=== PATIENT | male | born 1980 | race African-American/Black ===

== ENCOUNTER 2016-07-15 08:25 | Emergency (ER) | payer MEDICAID, OTHER ==
[~2016-07-15] VITALS: Ht 180.3 cm; Wt 80.0 kg
[2016-07-15] MEDS ORDERED: SODIUM CHLORIDE 0.9% 1,000 ML IV ONE (09:07)
[2016-07-15 09:32] LABS: BASOPHILS % 1.2 % (0.0-2.0); EOSINOPHILS % 3.5 % (0.0-5.0); HEMATOCRIT. 50.4 % (42.0-52.0); LYMPHOCYTES % 29.2 % (20.0-50.0); MEAN CORPUSCULAR VOLUME 90.3 fL (80.0-94.0); MEAN PLATELET VOLUME 7.9 fl (7.4-10.4); MONOCYTES % 5.6 % (2.0-8.0); NEUTROPHILS % 60.5 % (40.0-76.0); PLATELET 259 x1000/uL (130-400); RED BLOOD CELL COUNT 5.58 mill/uL (4.7-6.1); RED CELL DISTRIBUTION WIDTH 13.3 % (11.6-14.6); WHITE BLOOD COUNT 9.2 x1000/uL (4.5-11.0)
[2016-07-15 09:53] LABS: CHLORIDE 104 mEq/L (98-107); INDEX HEMOLYSI 4 (1-3); INDEX ICTERIC 1 (1-4); INDEX LIPEMIC 1 (1-3)
[2016-07-15 10:02] LABS: ALANINE AMINOTRANSFERASE 69 IU/L (13-61); ALBUMIN 3.9 g/dL (3.4-5.0); ANION GAP 16; BETA HYDROXYBUTYRATE 0.3 mMol/L (0.0-0.3); CARBON DIOXIDE 22 mEq/L (21-32); UREA NITROGEN BLOOD 17 mg/dL (7-21); eGFR > 60 mL/min (>60)
[2016-07-15 10:06] LABS: DIFFERENTIAL COMMENT 1
[2016-07-15 10:07] LABS: HEMOGLOBIN. 18.7 g/dL (14.0-18.0); MEAN CORPUSCULAR HEMOGLOBIN 33.5 pg (28.0-32.0); MEAN CORPUSCULAR HGB CONC 37.1 g/dL (31.0-37.0)
[2016-07-15] MEDS ORDERED: INSULIN REGULAR (HUMULIN R) 300UNITS/3ML SUBCUT ONE (10:30)
[2016-07-15 14:25] LABS: CLARITY URINE CLEAR (CLEAR); COLOR URINE YELLOW (YELLOW); GLUCOSE URINE 3+ (NEGATIVE); KETONES URINE NEGATIVE (NEGATIVE); LEUKOCYTE ESTERASE URINE NEGATIVE (NEGATIVE); NITRITE URINE NEGATIVE (NEGATIVE); OCCULT BLOOD URINE NEGATIVE (NEGATIVE); PROTEIN URINE NEGATIVE (NEGATIVE); SPECIFIC GRAVITY URINE 1.041 (1.005-1.030); UROBILINOGEN URINE 0.2 E.U./dL (0.2-1.0)
[2016-07-15 14:48] LABS: RBC URINE 0-2 /hpf (0-2); WBC URINE NONE SEEN /hpf (0-2)
[2016-07-15 14:49] LABS: BACTERIA URINE NONE SEEN; SQUAMOUS EPITHELIAL CELL URINE RARE /lpf (RARE/1+)
[2016-07-15 15:37] VITALS: BP 144/92
== END 2016-07-15 16:51 | disposition home or self-care (01) ==
LOC: ER 08:57
DX: E11.65 Type 2 diabetes mellitus with hyperglycemia (principal); I10 Essential (primary) hypertension; F20.9 Schizophrenia, unspecified; F31.9 Bipolar disorder, unspecified; F12.10 Cannabis abuse, uncomplicated; Z79.4 Long term (current) use of insulin
CPT/HCPCS: 36415; 71010; 80053; 81001; 82010; 82962; 85025; 96361; 96374; 99285; J1815; J7030; Z7610

== ENCOUNTER 2016-07-29 20:59 | Emergency (ER) | payer MEDICAID ==
[~2016-07-29] VITALS: Ht 182.9 cm; Wt 113.0 kg
[2016-07-29] MEDS ORDERED: SODIUM CHLORIDE 0.9% 1,000 ML IV ONE (22:16)
[2016-07-29] MEDS ORDERED: CLONIDINE 0.1MG TABLET PO ONE (22:30)
[2016-07-29 22:43] LABS: BASOPHILS % 1.2 % (0.0-2.0); DIFFERENTIAL COMMENT 0; HEMATOCRIT. 46.8 % (42.0-52.0); HEMOGLOBIN. 16.8 g/dL (14.0-18.0); LYMPHOCYTES % 27.2 % (20.0-50.0); MEAN CORPUSCULAR HEMOGLOBIN 32.3 pg (28.0-32.0); MEAN CORPUSCULAR VOLUME 89.8 fL (80.0-94.0); MEAN PLATELET VOLUME 8.4 fl (7.4-10.4); MONOCYTES % 6.2 % (2.0-8.0); NEUTROPHILS % 60.4 % (40.0-76.0); PLATELET 227 x1000/uL (130-400); RED BLOOD CELL COUNT 5.21 mill/uL (4.7-6.1); RED CELL DISTRIBUTION WIDTH 13.7 % (11.6-14.6); WHITE BLOOD COUNT 9.4 x1000/uL (4.5-11.0)
[2016-07-29 22:45] LABS: CHLORIDE 102 mEq/L (98-107); INDEX HEMOLYSI 4 (1-3); INDEX ICTERIC 2 (1-4); INDEX LIPEMIC 4 (1-3)
[2016-07-29 22:47] LABS: ALBUMIN 3.4 g/dL (3.4-5.0); AMYLASE 49 IU/L (25-115); ANION GAP 13; CARBON DIOXIDE 24 mEq/L (21-32); LIPASE 455 IU/L (73-393)
[2016-07-29 22:54] LABS: BETA HYDROXYBUTYRATE 0.2 mMol/L (0.0-0.3); eGFR > 60 mL/min (>60)
[2016-07-29] MEDS ORDERED: INSULIN REGULAR (HUMULIN R) 300UNITS/3ML SUBCUT ONE (23:15)
[2016-07-29 23:16] LABS: ALANINE AMINOTRANSFERASE 65 IU/L (13-61); UREA NITROGEN BLOOD 15 mg/dL (7-21)
[2016-07-29 23:38] VITALS: BP 159/100
[2016-07-29 23:57] LABS: CLARITY URINE CLEAR (CLEAR); COLOR URINE YELLOW (YELLOW); GLUCOSE URINE 3+ (NEGATIVE); KETONES URINE NEGATIVE (NEGATIVE); LEUKOCYTE ESTERASE URINE NEGATIVE (NEGATIVE); NITRITE URINE NEGATIVE (NEGATIVE); OCCULT BLOOD URINE NEGATIVE (NEGATIVE); PH URINE 6.5 (4.5-8.0); PROTEIN URINE NEGATIVE (NEGATIVE); SPECIFIC GRAVITY URINE 1.039 (1.005-1.030)
[2016-07-30 00:15] LABS: BACTERIA URINE NONE SEEN; RBC URINE 0-2 /hpf (0-2); SQUAMOUS EPITHELIAL CELL URINE NONE SEEN /lpf (RARE/1+); WBC URINE 0-2 /hpf (0-2)
== END 2016-07-30 00:07 | disposition home or self-care (01) ==
LOC: ER 22:17
DX: E11.65 Type 2 diabetes mellitus with hyperglycemia (principal); Z91.14 Patient's other noncompliance with medication regimen; I10 Essential (primary) hypertension; F20.9 Schizophrenia, unspecified
CPT/HCPCS: 36415; 80053; 81001; 82010; 82150; 82962; 83690; 85025; 96360; 96372; 99284; J1815; J7030; Z7610

== ENCOUNTER 2016-08-04 07:44 | Emergency (ER) | payer MEDICAID ==
[~2016-08-04] VITALS: Ht 182.9 cm; Wt 114.0 kg
[2016-08-04] MEDS ORDERED: INSULIN NPH (07:58)
[2016-08-04] MEDS ORDERED: SODIUM CHLORIDE 0.9% 1,000 ML IV ONE (08:19)
[2016-08-04 08:41] LABS: BG BASE EXCESS 0.8 mmol/L (-2.0-2.0); BG CARBOXYHEMOGLOBIN 3.8 % (0.5-1.5); BG FRACTION INSPIRED OXYGEN 21; BG HCO3 ACT 25.7 mmol/L (22.0-26.0); BG OXYGEN SATURATION 94.8 % (92.0-98.5); BG OXYHEMOGLOBIN 91.2 % (94.0-97.0); BG PCO2 41.7 mmHg (35.0-45.0); BG PH 7.407 (7.350-7.450); BG PO2 73.5 mmHg (75.0-100.0); BG SAMPLE SITE RIGHT BRACHIAL; BG TOTAL HEMOGLOBIN 16.7 g/dL (12.0-18.0); BG VENT MODE ROOM AIR
[2016-08-04 08:49] LABS: BASOPHILS % 1.4 % (0.0-2.0); EOSINOPHILS % 5.4 % (0.0-5.0); HEMATOCRIT. 47.5 % (42.0-52.0); HEMOGLOBIN. 16.4 g/dL (14.0-18.0); LYMPHOCYTES % 27.1 % (20.0-50.0); MEAN PLATELET VOLUME 8.3 fl (7.4-10.4); MONOCYTES % 6.6 % (2.0-8.0); NEUTROPHILS % 59.5 % (40.0-76.0); PLATELET 212 x1000/uL (130-400); RED BLOOD CELL COUNT 5.28 mill/uL (4.7-6.1); RED CELL DISTRIBUTION WIDTH 13.6 % (11.6-14.6)
[2016-08-04 09:11] LABS: CHLORIDE 99 mEq/L (98-107)
[2016-08-04 09:21] LABS: BETA HYDROXYBUTYRATE 0.2 mMol/L (0.0-0.3); CARBON DIOXIDE 27 mEq/L (21-32)
[2016-08-04] MEDS ORDERED: INSULIN REGULAR (HUMULIN R) 300UNITS/3ML IV ONE (09:30)
[2016-08-04 10:53] VITALS: BP 144/88
== END 2016-08-04 11:09 | disposition home or self-care (01) ==
LOC: ER 08:06
DX: E11.65 Type 2 diabetes mellitus with hyperglycemia (principal); F31.9 Bipolar disorder, unspecified; F20.9 Schizophrenia, unspecified; F17.200 Nicotine dependence, unspecified, uncomplicated
CPT/HCPCS: 36415; 36600; 80053; 82010; 82375; 82805; 82962; 85025; 96361; 96374; 99285; 99406; J1815; J7030; Z7610

== ENCOUNTER 2016-08-19 00:07 | Emergency (ER) | payer MEDICAID ==
[~2016-08-19 00:07] MED LIST: INSULIN NPH
== END 2016-08-19 03:35 | disposition left against medical advice (07) ==
LOC: ER 02:42
DX: Z53.21 Procedure and treatment not carried out due to patient leaving prior to being seen by health care provider (principal)

== ENCOUNTER 2016-11-15 19:44 | Emergency (ER) | payer MEDICAID ==
[~2016-11-15] VITALS: Ht 182.9 cm; Wt 106.0 kg
[2016-11-15] MEDS ORDERED: MORPHINE SULFATE 4 MG/ML CPJ (NOT FOR IM USE) IV STA (22:28)
[2016-11-15] MEDS ORDERED: SODIUM CHLORIDE 0.9% 1,000 ML IV ONE (22:28)
[2016-11-15] MEDS ORDERED: ONDANSETRON HCL 4MG/2ML VIAL IV STA (22:28)
[2016-11-15 23:02] LABS: BASOPHILS % 0.5 % (0.0-2.0); EOSINOPHILS % 0.6 % (0.0-5.0); HEMATOCRIT. 51.3 % (42.0-52.0); HEMOGLOBIN. 17.8 g/dL (14.0-18.0); LYMPHOCYTES % 7.2 % (20.0-50.0); MEAN CORPUSCULAR HEMOGLOBIN 30.9 pg (28.0-32.0); MEAN CORPUSCULAR VOLUME 88.9 fL (80.0-94.0); MEAN PLATELET VOLUME 8.1 fl (7.4-10.4); MONOCYTES % 4.2 % (2.0-8.0); NEUTROPHILS % 87.5 % (40.0-76.0); PLATELET 189 x1000/uL (130-400); RED BLOOD CELL COUNT 5.76 mill/uL (4.7-6.1); RED CELL DISTRIBUTION WIDTH 13.1 % (11.6-14.6)
[2016-11-15 23:07] LABS: CHLORIDE 99 mEq/L (98-107)
[2016-11-15 23:08] LABS: PARTIAL THROMBOPLASTIN TIME 24.1 sec (23.4-31.0); PROTHROMBIN TIME 10.5 sec (9.4-11.6)
[2016-11-15 23:15] LABS: BETA HYDROXYBUTYRATE 1.5 mMol/L (0.0-0.3); CARBON DIOXIDE 18 mEq/L (21-32)
[2016-11-16 01:07] LABS: CLARITY URINE CLEAR (CLEAR); COLOR URINE YELLOW (YELLOW); GLUCOSE URINE 3+ (NEGATIVE); KETONES URINE 3+ (NEGATIVE); LEUKOCYTE ESTERASE URINE NEGATIVE (NEGATIVE); NITRITE URINE NEGATIVE (NEGATIVE); OCCULT BLOOD URINE NEGATIVE (NEGATIVE); PH URINE 5.5 (4.5-8.0); PROTEIN URINE 1+ (NEGATIVE); SPECIFIC GRAVITY URINE 1.081 (1.005-1.030); UROBILINOGEN URINE 0.2 E.U./dL (0.2-1.0)
[2016-11-16 07:45] VITALS: BP 148/92
[2016-11-16] MEDS ORDERED: SODIUM CHLORIDE 0.9% 10ML VIAL ONE (14:19)
[2016-11-16] MEDS ORDERED: IOHEXOL-300 100 ML BOTTLE ONE (14:19)
[2016-11-19 10:24] LABS: BG BASE EXCESS -1.6 mmol/L (-2.0-2.0); BG CARBOXYHEMOGLOBIN 2.6 % (0.5-1.5); BG DEOXYHEMOGLOBIN 5.2 % (0.0-5.0); BG FRACTION INSPIRED OXYGEN 21; BG HCO3 ACT 23.4 mmol/L (22.0-26.0); BG METHEMOGLOBIN 0.2 % (0.0-1.5); BG OXYGEN SATURATION 94.7 % (92.0-98.5); BG PCO2 40.4 mmHg (35.0-45.0); BG PO2 71.7 mmHg (75.0-100.0); BG SAMPLE SITE RIGHT RADIAL; BG TOTAL HEMOGLOBIN 17.7 g/dL (12.0-18.0); BG VENT MODE ROOM AIR
== END 2016-11-16 08:32 | disposition left against medical advice (07) ==
LOC: ER 19:44 → ENRESERV 11-16 07:09 → CANRESERV 11-16 07:09 → ENRESERV 11-16 08:18 → CANRESERV 11-16 08:18 → ER 11-16 08:32 → CANBEDREQ 11-16 08:40
DX: K85.90 Acute pancreatitis without necrosis or infection, unspecified (principal); E11.65 Type 2 diabetes mellitus with hyperglycemia; Z79.4 Long term (current) use of insulin
CPT/HCPCS: 36415; 36600; 71010; 74177; 80053; 81001; 82010; 82375; 82805; 82962; 83605; 83690; 85025; 85610; 85730; 87040; 96361; 96374; 96375; 99285; A4216; J2270; J2405; J7030; J7040; Q9967; Z7610

== ENCOUNTER 2017-05-22 19:31 | Emergency (ER) | payer MEDICAID ==
[~2017-05-22] VITALS: Ht 182.9 cm; Wt 105.0 kg
[2017-05-22] MEDS ORDERED: ACETAMINOPHEN 325MG TABLET PO STA (19:47)
[2017-05-22] MEDS ORDERED: SODIUM CHLORIDE 0.9% 1,000 ML IV ONE ×2 (20:00→20:48)
[2017-05-22] MEDS ORDERED: KETOROLAC 30MG/ML VIAL IV STA (20:48)
[2017-05-22 20:54] LABS: BASOPHILS % 0.9 % (0.0-2.0); EOSINOPHILS % 2.6 % (0.0-5.0); HEMATOCRIT. 53.1 % (42.0-52.0); HEMOGLOBIN. 18.2 g/dL (14.0-18.0); LYMPHOCYTES % 25.6 % (20.0-50.0); MEAN CORPUSCULAR HEMOGLOBIN 31.3 pg (28.0-32.0); MEAN CORPUSCULAR VOLUME 91.2 fL (80.0-94.0); MEAN PLATELET VOLUME 7.8 fl (7.4-10.4); MONOCYTES % 5.3 % (2.0-8.0); NEUTROPHILS % 65.6 % (40.0-76.0); PLATELET 207 x1000/uL (130-400); RED BLOOD CELL COUNT 5.82 mill/uL (4.7-6.1); RED CELL DISTRIBUTION WIDTH 13.4 % (11.6-14.6)
[2017-05-22 21:00] LABS: PROTHROMBIN TIME 10.6 sec (9.4-11.6)
[2017-05-22] MEDS ORDERED: INSULIN REGULAR (HUMULIN R) UD 100 UNITS/ML SYR SUBCUT ONE (21:00)
[2017-05-22 21:05] LABS: CHLORIDE 102 mEq/L (98-107)
[2017-05-22 21:15] LABS: CLARITY URINE CLEAR (CLEAR); COLOR URINE YELLOW (YELLOW); KETONES URINE 1+ (NEGATIVE); LEUKOCYTE ESTERASE URINE NEGATIVE (NEGATIVE); NITRITE URINE NEGATIVE (NEGATIVE); OCCULT BLOOD URINE NEGATIVE (NEGATIVE); PH URINE 5.5 (4.5-8.0); PROTEIN URINE NEGATIVE (NEGATIVE); SPECIFIC GRAVITY URINE 1.028 (1.005-1.030)
[2017-05-22] MEDS ORDERED: INSULIN REGULAR (HUMULIN R) UD 100 UNITS/ML SYR SUBCUT NR (21:15)
[2017-05-22 22:27] VITALS: BP 146/81
== END 2017-05-22 23:10 | disposition left against medical advice (07) ==
LOC: ER 19:57
DX: M54.5 Low back pain (principal); E11.65 Type 2 diabetes mellitus with hyperglycemia; R94.31 Abnormal electrocardiogram [ECG] [EKG]; E78.00 Pure hypercholesterolemia, unspecified; I10 Essential (primary) hypertension; F17.200 Nicotine dependence, unspecified, uncomplicated; Z79.4 Long term (current) use of insulin
CPT/HCPCS: 36415; 80053; 81003; 84484; 85025; 85610; 93005; 96361; 96372; 96374; 99285; J1815; J1885; J7030; Z7610

== ENCOUNTER 2017-08-03 21:26 | Emergency (ER) | payer SELFPAY ==
[~2017-08-03] VITALS: Ht 182.9 cm; Wt 105.0 kg
[2017-08-04] MEDS ORDERED: CYCLOBENZAPRINE 10MG TABLET PO ONE (02:30)
[2017-08-04] MEDS ORDERED: KETOROLAC 60MG/2ML VIAL IM ONE (02:30)
[2017-08-04 03:52] VITALS: BP 170/100
== END 2017-08-04 03:59 | disposition home or self-care (01) ==
LOC: ER 22:40
DX: M54.9 Dorsalgia, unspecified (principal); M54.2 Cervicalgia; G89.29 Other chronic pain; E11.9 Type 2 diabetes mellitus without complications; I10 Essential (primary) hypertension; E78.00 Pure hypercholesterolemia, unspecified; F17.210 Nicotine dependence, cigarettes, uncomplicated; Z79.4 Long term (current) use of insulin; Z87.828 Personal history of other (healed) physical injury and trauma
CPT/HCPCS: 96372; 99283; J1885

== ENCOUNTER 2020-06-19 13:18 | Emergency (ER) | payer MEDICAID ==
[~2020-06-19] VITALS: Ht 180.3 cm; Wt 96.0 kg
[2020-06-19 14:21] VITALS: BP 167/78
[2020-06-19 14:56] LABS: BASOPHILS % 1.5 % (0.0-2.0); HEMATOCRIT. 55.4 % (42.0-52.0); HEMOGLOBIN. 19.2 g/dL (14.0-18.0); LYMPHOCYTES % 21.8 % (20.0-50.0); MEAN CORPUSCULAR HEMOGLOBIN 33.3 pg (28.0-32.0); MEAN CORPUSCULAR VOLUME 95.9 fL (80.0-94.0); MEAN PLATELET VOLUME 7.8 fl (7.4-10.4); MONOCYTES % 5.5 % (2.0-8.0); NEUTROPHILS % 70.2 % (40.0-76.0); PLATELET 201 x1000/uL (130-400); RED BLOOD CELL COUNT 5.78 mill/uL (4.7-6.1); RED CELL DISTRIBUTION WIDTH 13.5 % (11.6-14.6)
[2020-06-19] MEDS ORDERED: SODIUM CHLORIDE 0.9% 1,000 ML IV ONE (15:00)
[2020-06-19 15:04] LABS: CHLORIDE 105 mEq/L (98-107)
[2020-06-19 15:06] LABS: PROTHROMBIN TIME 10.9 sec (9.6-11.0)
[2020-06-19 15:31] LABS: CLARITY URINE CLEAR (CLEAR); COLOR URINE YELLOW (YELLOW); KETONES URINE 1+ (NEGATIVE); LEUKOCYTE ESTERASE URINE NEGATIVE (NEGATIVE); NITRITE URINE NEGATIVE (NEGATIVE); OCCULT BLOOD URINE NEGATIVE (NEGATIVE); PH URINE 7.5 (4.5-8.0); PROTEIN URINE 2+ (NEGATIVE); SPECIFIC GRAVITY URINE 1.046 (1.005-1.030)
== END 2020-06-19 17:21 | disposition left against medical advice (07) ==
LOC: ER 13:51
DX: E11.65 Type 2 diabetes mellitus with hyperglycemia (principal); R42 Dizziness and giddiness; F31.9 Bipolar disorder, unspecified; F20.9 Schizophrenia, unspecified; R00.0 Tachycardia, unspecified
CPT/HCPCS: 36415; 71045; 80053; 81003; 82962; 83690; 85025; 85610; 93005; 99285; Z7610

== ENCOUNTER 2023-11-30 06:16 | Emergency (ER) | payer MEDICAID ==
[~2023-11-30] VITALS: Ht 182.9 cm; Wt 80.0 kg
[2023-11-30 06:24] VITALS: O2SAT 99
[2023-11-30 08:09] LABS: BASOPHILS % 0.8 % (0.0-2.0); EOSINOPHILS % 1.4 % (0.0-5.0); HEMATOCRIT. 42.9 % (42.0-52.0); HEMOGLOBIN. 14.6 g/dL (14.0-18.0); LYMPHOCYTES % 20.1 % (20.0-50.0); MEAN CORPUSCULAR HEMOGLOBIN 31.8 pg (28.0-32.0); MEAN CORPUSCULAR VOLUME 93.4 fL (80.0-94.0); MEAN PLATELET VOLUME 7.5 fl (7.4-10.4); NEUTROPHILS % 69.7 % (40.0-76.0); PLATELET 188 x1000/uL (130-400); RED BLOOD CELL COUNT 4.59 mill/uL (4.7-6.1); RED CELL DISTRIBUTION WIDTH 13.3 % (11.6-14.6); WHITE BLOOD COUNT 7.7 x1000/uL (4.5-11.0)
[2023-11-30 08:14] LABS: CARBON DIOXIDE 28 mEq/L (21-32); CHLORIDE 102 mEq/L (98-107); POTASSIUM 4.2 mEq/L (3.5-5.1); SODIUM 135 mEq/L (136-145)
[2023-11-30 08:15] LABS: CALCIUM 9.8 mg/dL (8.7-10.4)
[2023-11-30 08:19] LABS: CREATININE 0.9 mg/dL (0.6-1.3)
[2023-11-30 08:20] LABS: GLUCOSE 287 mg/dL (70-105); UREA NITROGEN BLOOD 14 mg/dL (9-23)
[2023-11-30 18:45] VITALS: BP 162/97; PULSE 71; RESP 16; TEMP 37.05852; O2SAT 99
== END 2023-11-30 19:34 | disposition short-term general hospital (02) ==
LOC: ER 06:16
DX: S02.40DA Maxillary fracture, left side, initial encounter for closed fracture (principal); S02.32XA Fracture of orbital floor, left side, initial encounter for closed fracture; S02.40FA Zygomatic fracture, left side, initial encounter for closed fracture; F12.10 Cannabis abuse, uncomplicated; E11.9 Type 2 diabetes mellitus without complications; I10 Essential (primary) hypertension; Z98.890 Other specified postprocedural states; Y04.0XXA Assault by unarmed brawl or fight, initial encounter; Y93.89 Activity, other specified; Y92.89 Other specified places as the place of occurrence of the external cause; Y99.8 Other external cause status
CPT/HCPCS: 80048; 85025; 36415; 73030; 70450; 70486; 99285; Z7610 ×2